=== PATIENT | male | born 1940 | race Caucasian/White ===

== ENCOUNTER 2022-06-11 14:51 | Emergency (ER) | payer BC ==
[~2022-06-11] VITALS: Ht 177.8 cm; Wt 91.2 kg
[2022-06-11] MEDS ORDERED: ONDANSETRON HCL/PF 4 MG/2 ML VIAL IVP ONE (15:00)
[2022-06-11] MEDS ORDERED: IV NS 0.9% 1,000 ML BAG IV ONE (15:00)
--- NOTE | 2022-06-11 15:00 | NUR ---
RECIVED PT 82 YRS MALE TRANSFER FROM SNF FOR EVALUATION OF VOMITING AND BODY AKASH FOR 4 DAYS
[2022-06-11] MEDS ORDERED: ONDANSETRON HCL/PF 4 MG/2 ML VIAL ONE (15:21)
[2022-06-11 15:25] LABS: BASOPHILS % (AUTO) 0.2 % (0.0-2.0); EOSINOPHILS % (AUTO) 0.3 % (0.0-6.0); HEMATOCRIT 40 % (39-51); HEMOGLOBIN 13.4 g/dL (13.5-17.5); LYMPHOCYTES # (AUTO) 0.9 K/uL (0.8-4.8); LYMPHOCYTES % (AUTO) 9.7 % (20.0-44.0); MEAN CORPUSCULAR HGB CONC 34 g/dl (31.0-36.0); MEAN CORPUSCULAR VOLUME 89 fL (80-96); MONOCYTES # (AUTO) 0.5 K/uL (0.1-1.30); MONOCYTES % (AUTO) 5.6 % (2.0-12.0); NEUTROPHILS # (AUTO) 7.5 K/uL (1.8-8.9); NEUTROPHILS % (AUTO) 84.2 % (43.0-81.0); PLATELET COUNT (AUTO) 187 K/uL (150-450); WHITE BLOOD COUNT (AUTO) 8.9 K/uL (4.3-11.0)
--- NOTE | 2022-06-11 15:30 | NUR ---
TO CT SCAN OF ABDOMIN WITH NO N/V
[2022-06-11 15:33] LABS: CALCIUM, SERUM 9.1 mg/dL (8.5-10.1); CARBON DIOXIDE 33 mmol/L (21-32); CHLORIDE 108 mmol/L (98-107); CREATININE 0.9 mg/dL (0.6-1.3); GLUCOSE 172 mg/dL (74-106); SODIUM SERUM 143 mmol/L (136-145); UREA NITROGEN, BLOOD 18 mg/dL (7-18)
[2022-06-11 15:39] LABS: ALANINE AMINOTRANSFERASE 52 U/L (12-78); ALBUMIN 3.3 g/dL (3.4-5.0); ALKALINE PHOSPHATASE 103 U/L (46-116); ASPARTATE AMINOTRANSFERASE 14 U/L (15-37); BILIRUBIN,DIRECT 0.2 mg/dL (0.0-0.2); BILIRUBIN,TOTAL 0.5 mg/dL (0.2-1.0); TOTAL PROTEIN, SERUM 6.4 g/dL (6.4-8.2)
--- NOTE | 2022-06-11 16:11 | NUR ---
COVID SWAB AND FLUI SWAB SENT TO LAB
--- NOTE | 2022-06-11 16:46 | NUR ---
CALLED FOR US
--- NOTE | 2022-06-11 17:20 | NUR ---
ABDOMINALE US DONE AT BED SIDE PT UNCOOPRATIVE
--- NOTE | 2022-06-11 17:34 | NUR ---
[facility] CALLED FOR TRANSFER ETA [address].
--- NOTE | 2022-06-11 19:15 | NUR ---
Patient discharged to SNF in stable condition. Written and verbal after care instructions given. Patient verbalizes understanding of instruction. D/C INSTACTION GIVEN TO EMT LUCYLANCE
--- NOTE | 2022-06-11 19:35 | NUR ---
TRANSFER BACK TO [facility] stable vs pt awake confused orinted x1
[2022-06-11 19:39] VITALS: BP 149/78
== END 2022-06-11 19:40 ==
LOC: ER 14:55
DX: R11.2 Nausea with vomiting, unspecified (principal); K80.20 Calculus of gallbladder without cholecystitis without obstruction; R94.31 Abnormal electrocardiogram [ECG] [EKG]; R94.8 Abnormal results of function studies of other organs and systems; N40.0 Benign prostatic hyperplasia without lower urinary tract symptoms; E11.9 Type 2 diabetes mellitus without complications; Z66 Do not resuscitate; F03.90 Unspecified dementia, unspecified severity, without behavioral disturbance, psychotic disturbance, mood disturbance, and anxiety; Z85.820 Personal history of malignant melanoma of skin; Z20.822 Contact with and (suspected) exposure to COVID-19
CPT/HCPCS: 99285; 70450; 96374; 76705; 71045; 96361; 87426; 93005; 87804; 74176; 85025; 80048; 83605; 83690; 80076; 36415; 84484; J2405; J7030; C9803